=== PATIENT | female | born 1965 | race Caucasian/White ===

== ENCOUNTER 2021-03-20 11:32 | Emergency (ER) | payer OTHER, SELFPAY ==
[2021-03-20 11:32] VITALS: BP 148/84; PULSE 66; RESP 17; TEMP 36.2; O2SAT 99; BMI 31.8
--- NOTE | 2021-03-20 11:43 | NURSING ---
NO OLD EKGS
--- NOTE | 2021-03-20 11:45 | EKG12_ITS ---
Test Reason : SYNCOPE Blood Pressure : / mmHG Vent. Rate : 063 BPM Atrial Rate : 063 BPM P-R Int : 148 ms QRS Dur : 088 ms QT Int : 400 ms P-R-T Axes : 016 033 005 degrees QTc Int : 409 ms Normal sinus rhythm Normal ECG Confirmed by TARAN KEVIN, LUCI ([id number]), movie editor LEON CARIAS ([id number]) on 03/23/2021 11:02:13 A M Referred By: ZHANG Confirmed By:RADHA CHIRINOS MD
--- NOTE | 2021-03-20 11:46 | EX.ED.DYSGE1 ---
HPI History of Present Illness Chief Complaint: Syncope Informant: patient and family Onset/Context/Timing Onset: Today (JPTA) Context: Sudden Onset (see below) Timing: Intermittent (x1) and Lasts (brief) Quality: passed out Current Severity: Gone Maximum Severity: Moderate Narrative Narrative: Patient was here with her , who was having a STEMI and on the Stores Clerk table. Upon staff telling this patient that her , she passed out. When she recovered, she was brought down to the emergency department, and did not respond to her name. Her daughter states she has a history of multiple personality disorder and her other personality is named Yossi, to which she responded. Daughter states she has not switched personalities since she was a child. Upon nursing evaluating her just prior to my evaluation, she was back to [place], to which name she responds currently. She is very sad about her 's . She denies any physical symptoms except for feeling a little tingly all over. She has had no recent illnesses or injuries, and she does not feel like she injured herself during the collapse; nursing who witnessed this and was present during the time caught her and helped lower her to the ground and confirm that she did not injure herself. [facility] Medical History (Updated 03/20/21 @ 12:[address] Allen Blackwood MD) Hypertension Multiple personality disorder Home Medications Unobtainable 03/20/21 [History Last Taken Unknown] Allergy/AdvReac Type Severity Reaction Status Date / Time No Known Allergies Allergy Verified 03/20/21 11:35 Social History Smoking Status: Former smoker ROS ROS ED Constitutional Constitutional ED: Denies chills or fever(s) Eyes Eyes: Denies change in vision or diplopia ENT ENT ED: Denies rhinorrhea or sore throat Cardiovascular Cardiovascular: Denies chest pain or palpitations Respiratory/Chest Respiratory/Chest: Denies cough or dyspnea Gastrointestinal Gastrointestinal: Denies abdominal pain, diarrhea, nausea or vomiting Genitourinary Genitourinary ED: Denies dysuria or hematuria Musculoskeletal Musculoskeletal: Denies back pain or neck pain Integumentary Denies abscess or rash Neurologic Neurologic: Denies headache(s), paresthesias or weakness Psychiatric Psychiatric: Reports as per HPI, anxiety and depression EXAM Physical Exam Const Vital Signs: 03/20/21 11:32 03/20/21 11:36 Temperature 97.2 F L Temperature Source Temporal Pulse Rate 66 Respiratory Rate 17 Respiratory Effort Normal Non-Labored Blood Pressure 148/84 H Blood Pressure Mean 105 Pulse Ox 99 Oxygen Delivery Method Room Air Positive well nourished and well developed General Appearance ED: well developed and NAD HEENT Reports moist mucous membranes normocephalic and atraumatic Eyes PERRL and EOMs intact bilaterally Neck full ROM and supple Resp normal respiratory effort and clear to auscultation bilaterally Cardio regular rate, regular rhythm and no murmurs GI non-tender and non-distended Auscultation: normoactive bowel sounds Palpation: soft Back/Spine no CVA tenderness Back/Spine Narrative: No midline tenderness. Full range of motion throughout spine including neck. General Back: other FROM Extremity normal to inspection General Extremety ED: Negative for edema, pulses abnormal or tenderness General Extremity: Negative for edema or pulses abnormal Neuro oriented x3, CN's II-XII intact bilaterally and no sensory deficits noted Sensorium / Orientation: awake and alert Motor Exam: strength 5/5 throughout Psych mental status grossly normal, thought process normal and cooperative Appearance: appropriate and well kempt Mood & Affect: sad Thought Process: normal thought process Thought Content: normal thought content Attention / Concentration: attention grossly intact and concentration grossly intact Memory / Cognition: memory grossly intact Insight: insight good Skin no rashes or lesions noted and no wounds MDM MDM MDM Narrative Medical decision making narrative: EKG was obtained and looked unremarkable. Her vital signs are normal. She is depressed, she was offered support, she did not want any medications but social work was speaking with she and her daughter. I suspect her paresthesias are due to anxiety and will resolve with time. Prior to discharge she was ambulatory and neurologically intact. EKG Initial EKG: Attestation: I personally reviewed and interpreted this EKG as follows: Interpretation: Sinus Rhythm and No Acute Injury Pattern Comments: normal EKG Discharge Plan Triage Chief Complaint: Syncope ED Provider: Allen Blackwood Dx/Rx/DC Orders Clinical Impression: Vasovagal syncope, Acute stress reaction Instructions: ED Anxiety Reaction Prescriptions: No Action Unobtainable RF: 0 Primary Care Provider: NOT,DEFINED Referrals: NOT,DEFINED [Primary Care Provider] - Doctor,Your [STAFF PHYSICIAN] - As Needed Disposition Disposition: Home, self care
== END 2021-03-20 13:42 | disposition home or self-care (01) ==
LOC: ED 13:11
PROVIDERS: Emergency Provider Emergency Medicine
DX: R55 Syncope and collapse (principal); F43.0 Acute stress reaction; F44.81 Dissociative identity disorder; I10 Essential (primary) hypertension; Z87.891 Personal history of nicotine dependence
CPT/HCPCS: 93005; 99282